=== PATIENT | female | born 1995 | race African-American/Black ===

== ENCOUNTER 2016-12-11 20:17 | Outpatient (CLI) | payer OTHER ==
[~2016-12-11] VITALS: Ht 162.6 cm; Wt 64.5 kg
[~2016-12-11 20:17] MED LIST: CEFTIN 250250 MG/TAB PO; CYTOTEC 10100 MCG/TA PO; DOXYCYCLINE 10100 MG PO; FLAGYL500 MG PO; FLEXERIL 1010 MG/TAB PO; MOTRIN 600600 MG/TAB PO; NAPROSYN500 MG PO; NORCO 325 MG-51 TAB PO; PERCOCET 325 MG1 TA2 PO; PHENERGAN25 MG RC; ZOFRAN ODT4 MG PO
[2016-12-11 20:24] VITALS: BP 101/65; PULSE 81; TEMP 98.5
[2016-12-11 21:26] LABS: BASO % 0.2 % (0.0-2.0); EOS # 0.2 (0.0-0.7); EOS % 1.1 % (0-4.0); GRAN # 13.2 (1.4-6.5); GRAN % 78.6 % (42.2-75.2); LYMPH # 2.1 (1.2-3.4); LYMPH % 12.4 % (20.0-51.0); MEAN CELL VOLUME 82 fl (80.0-100.0); MEAN CORPUSCULAR HGB CONC 33 g/dl (33.0-37.0); MEAN PLATELET VOLUME 10.7 fl (7.4-10.4); MONO # 1.2 (0.1-0.6); MONO % 7.3 % (1.7-9.3); PLATELET COUNT 190 K/mm3 (130-400); RED BLOOD COUNT 3.97 M/mm3 (4.10-5.30); REDCELL DISTRIBUTION WIDTH-CV 13.8 % (11.5-14.5); WHITE BLOOD COUNT 16.8 K/mm3 (4.8-10.8)
[2016-12-11 21:27] VITALS: BP 101/65; PULSE 81; TEMP 98.5
[2016-12-11 21:29] LABS: HEMATOCRIT 32.4 % (37.0-47.0); HEMOGLOBIN 10.8 g/dl (12.5-16.0); MEAN CORPUSCULAR HEMOGLOBIN 27 pg (27.0-31.0)
[2016-12-11 21:30] LABS: PH 7 (5-8); URINE APPEARANCE Hazy; URINE BACTERIA Rare /hpf; URINE BILIRUBIN Negative (NEGATIVE); URINE BLOOD Negative (NEGATIVE); URINE COLOR Straw; URINE GLUCOSE Negative (NEGATIVE); URINE KETONE Negative (NEGATIVE); URINE RBC 0-2 /hpf; URINE UROBILINOGEN Negative (NEGATIVE); URINE WBC 0-2 /hpf
[2016-12-11 21:36] LABS: ALBUMIN 3.7 gm/dL (3.5-5.0); BILIRUBIN,TOTAL 0.5 mg/dL (0.0-1.0); CALCIUM 9.8 mg/dL (8.4-10.2); CREATININE, serum 0.61 mg/dL (0.52-1.25); POTASSIUM 4.1 mmol/L (3.4-5.0)
[2016-12-11] MEDS ORDERED: PRENATAL PO (21:43)
== END 2016-12-11 22:07 | disposition home or self-care (01) ==
LOC: LDRO 20:17
PROVIDERS: Obstetrics & Gynecology
DX: O26.92 Pregnancy related conditions, unspecified, second trimester (principal); R10.11 Right upper quadrant pain; R10.31 Right lower quadrant pain; Z3A.21 21 weeks gestation of pregnancy

== ENCOUNTER 2017-02-23 20:15 | Outpatient (CLI) | payer MEDICAID ==
[~2017-02-23] VITALS: Ht 160 cm; Wt 71.4 kg
[~2017-02-23 20:15] MED LIST changes: +PRENATAL PO
[2017-02-23 20:35] VITALS: BP 113/70; PULSE 103; TEMP 98.6
[2017-02-23 21:36] LABS: ADJUSTED CALCIUM 9.8 mg/dL (8.4-10.2); ALBUMIN 3.6 gm/dL (3.5-5.0); BILIRUBIN,TOTAL 0.6 mg/dL (0.0-1.0); CALCIUM 9.5 mg/dL (8.4-10.2); CREATININE, serum 0.63 mg/dL (0.52-1.25); POTASSIUM 3.7 mmol/L (3.4-5.0); TOTAL PROTEIN 6.5 gm/dL (6.4-8.2)
== END 2017-02-23 22:10 | disposition home or self-care (01) ==
LOC: LDRO 20:15
PROVIDERS: Obstetrics & Gynecology
DX: R10.11 Right upper quadrant pain (principal)

== ENCOUNTER 2017-03-26 10:04 | Inpatient (IN) | payer MEDICAID ==
[2017-03-26] VITALS (14 sets, daily range): BP systolic 90–109; BP diastolic 50–67; PULSE 60–92; TEMP 97.9–98.5
[~2017-03-26] VITALS: Ht 160 cm; Wt 74.5 kg
[2017-03-26 11:21] LABS: BASO % 0.2 % (0.0-2.0); EOS # 0.1 (0.0-0.7); EOS % 0.6 % (0-4.0); GRAN # 8.5 (1.4-6.5); GRAN % 75.7 % (42.2-75.2); LYMPH # 1.6 (1.2-3.4); LYMPH % 13.9 % (20.0-51.0); MEAN CELL VOLUME 82 fl (80.0-100.0); MEAN CORPUSCULAR HGB CONC 34 g/dl (33.0-37.0); MEAN PLATELET VOLUME 10.8 fl (7.4-10.4); MONO % 9.2 % (1.7-9.3); PLATELET COUNT 154 K/mm3 (130-400); RED BLOOD COUNT 3.96 M/mm3 (4.10-5.30); REDCELL DISTRIBUTION WIDTH-CV 14.2 % (11.5-14.5); WHITE BLOOD COUNT 11.3 K/mm3 (4.8-10.8)
[2017-03-26 11:24] LABS: HEMATOCRIT 32.3 % (37.0-47.0); HEMOGLOBIN 10.9 g/dl (12.5-16.0); MEAN CORPUSCULAR HEMOGLOBIN 28 pg (27.0-31.0)
[2017-03-27 03:00] VITALS: BP 86/49; PULSE 80; TEMP 98
[2017-03-27 08:25] VITALS: BP 74/51; PULSE 81; TEMP 98.4
[2017-03-27 11:30] LABS: MEAN CELL VOLUME 83 fl (80.0-100.0); MEAN CORPUSCULAR HGB CONC 33 g/dl (33.0-37.0); PLATELET COUNT 150 K/mm3 (130-400); RED BLOOD COUNT 3.43 M/mm3 (4.10-5.30); REDCELL DISTRIBUTION WIDTH-CV 14.3 % (11.5-14.5)
[2017-03-27 11:42] LABS: WHITE BLOOD COUNT 20.2 K/mm3 (4.8-10.8)
[2017-03-27 11:43] LABS: ADD PATHOLOGY DIFF REVIEW NO; HEMATOCRIT 28.5 % (37.0-47.0); HEMOGLOBIN 9.4 g/dl (12.5-16.0); MEAN CORPUSCULAR HEMOGLOBIN 27 pg (27.0-31.0)
[2017-03-27 13:03] LABS: ACANTHOCYTES 1+; BAND 5 % (0-10); BURR CELLS 1+; NEUTROPHILS 82 % (42.0-75.2); OVALOCYTES 2+; PLATELET ESTIMATE NORMAL (NORMAL); TOTAL CELLS COUNTED 100
[2017-03-27 17:15] VITALS: BP 106/57; PULSE 84; TEMP 98.1
[2017-03-27 20:45] VITALS: BP 94/52; PULSE 86; TEMP 98.4
[2017-03-28 08:45] VITALS: BP 109/70; PULSE 97; TEMP 97.8
[2017-03-28] MEDS ORDERED: IBU800 M1 PO (09:40)
[2017-03-28] MEDS ORDERED: BREASTPUMP MC (09:57)
== END 2017-03-28 13:30 | disposition home or self-care (01) | DRG 765 ==
LOC: EDSTATUS 10:04 → OB 10:06 → LDRO 16:15 → OB 03-28 13:30 → LDRO 04-16 08:47
PROVIDERS: Obstetrics & Gynecology
PROC: 10D00Z1 Extraction of Products of Conception, Low, Open Approach (ICD-10-PCS; principal; 2017-03-26)
PROC: 0HB7XZZ Excision of Abdomen Skin, External Approach (ICD-10-PCS; 2017-03-26)
DX: O34.29 Maternal care due to uterine scar from other previous surgery (principal); O36.0130 Maternal care for anti-D [Rh] antibodies, third trimester, not applicable or unspecified; N85.8 Other specified noninflammatory disorders of uterus; O99.013 Anemia complicating pregnancy, third trimester; D64.9 Anemia, unspecified; Z3A.37 37 weeks gestation of pregnancy; Z37.0 Single live birth
CPT/HCPCS: J0690; J1885; J2270; J2370; J2405; J2550; J2590; J2791; J7120

== ENCOUNTER 2017-05-11 12:39 | Emergency (ER) | payer MEDICAID ==
[~2017-05-11] VITALS: Ht 160 cm; Wt 68.2 kg
[~2017-05-11 12:39] MED LIST changes: +BREASTPUMP MC; +IBU800 M1 PO
[2017-05-11 12:44] VITALS: BP 130/80; PULSE 74; TEMP 99.3
[2017-05-11 14:03] LABS: BASO % 0.4 % (0.0-2.0); EOS # 0.1 (0.0-0.7); EOS % 1.2 % (0-4.0); GRAN # 5.9 (1.4-6.5); GRAN % 60.6 % (42.2-75.2); LYMPH # 2.5 (1.2-3.4); MEAN CELL VOLUME 81 fl (80.0-100.0); MEAN CORPUSCULAR HGB CONC 33 g/dl (33.0-37.0); MEAN PLATELET VOLUME 10.2 fl (7.4-10.4); MONO # 1.1 (0.1-0.6); MONO % 11.6 % (1.7-9.3); PLATELET COUNT 244 K/mm3 (130-400); RED BLOOD COUNT 4.54 M/mm3 (4.10-5.30); REDCELL DISTRIBUTION WIDTH-CV 13.2 % (11.5-14.5); WHITE BLOOD COUNT 9.7 K/mm3 (4.8-10.8)
[2017-05-11 14:06] LABS: HEMATOCRIT 36.6 % (37.0-47.0); HEMOGLOBIN 11.9 g/dl (12.5-16.0); MEAN CORPUSCULAR HEMOGLOBIN 26 pg (27.0-31.0)
[2017-05-11 14:24] LABS: ADJUSTED CALCIUM 9.4 mg/dL (8.4-10.2); ALANINE AMINOTRANSFERASE 29 U/L (9-52); ALBUMIN 4.2 gm/dL (3.5-5.0); ALKALINE PHOSPHATASE 88 U/L (50-136); ANION GAP 11 mmol/L (7-16); BILIRUBIN,TOTAL 0.4 mg/dL (0.0-1.0); BLOOD UREA NITROGEN 13 mg/dL (7-17); CALCIUM 9.6 mg/dL (8.4-10.2); CARBON DIOXIDE 27 mmol/L (22-30); CHLORIDE 106 mmol/L (98-107); CREATININE, serum 0.76 mg/dL (0.52-1.25); GLUCOSE 82 mg/dL (74-106); POTASSIUM 3.8 mmol/L (3.4-5.0); SODIUM 143 mmol/L (137-145); TOTAL PROTEIN 7.2 gm/dL (6.4-8.2)
[2017-05-11 14:25] LABS: C-REACTIVE PROTEIN < 0.5 mg/dL (0.0-0.9)
== END 2017-05-11 14:38 | disposition home or self-care (01) ==
LOC: COL.ER 12:39
PROVIDERS: Nurse Practitioner
DX: O90.89 Other complications of the puerperium, not elsewhere classified (principal); R10.31 Right lower quadrant pain; O99.53 Diseases of the respiratory system complicating the puerperium; J45.909 Unspecified asthma, uncomplicated; Z98.890 Other specified postprocedural states

== ENCOUNTER 2017-10-27 23:25 | Emergency (ER) | payer MEDICAID ==
[~2017-10-27] VITALS: Ht 160 cm; Wt 62.7 kg
[2017-10-27 23:27] VITALS: BP 138/82; TEMP 99.9
[2017-10-27] MEDS ORDERED: PROAIR HFA0.09 MG/AC IH (23:31)
[2017-10-28 00:06] VITALS: PULSE 104
== END 2017-10-28 00:06 | disposition home or self-care (01) ==
LOC: COL.ER 23:25
DX: J06.9 Acute upper respiratory infection, unspecified (principal); J45.909 Unspecified asthma, uncomplicated

== ENCOUNTER 2017-11-01 21:20 | Emergency (ER) | payer MEDICAID ==
[~2017-11-01] VITALS: Ht 160 cm; Wt 62.3 kg
[~2017-11-01 21:20] MED LIST changes: +PROAIR HFA0.09 MG/AC IH
[2017-11-01 21:25] VITALS: BP 126/74; TEMP 98.2
[2017-11-01] MEDS ORDERED: ZITHROMAX 250M250 MG PO (22:22)
[2017-11-01 22:31] VITALS: PULSE 84
== END 2017-11-01 22:32 | disposition home or self-care (01) ==
LOC: COL.ER 21:20
DX: J02.9 Acute pharyngitis, unspecified (principal); R59.0 Localized enlarged lymph nodes
CPT/HCPCS: J1100